=== PATIENT | male | born 1955 | race Caucasian/White ===

== ENCOUNTER → 2017-04-05 | Day surgery (SDC) | payer BC ==
[~2017-04-05] MED LIST: ACETAMINOPHEN325 MG PO; ASPIRIN81 M2 PO; DIOVAN; DIOVAN PO; DIOVAN80 M1 PO; HCTZ PO; HYDROCODON-ACE1 EAC7 PO; LISINOPRIL PO; LODINE PO; LOPRESSOR PO; MOBIC PO; MULTIVITAMINS1 EAC3 PO; NAPROSYN-EC500 M1 PO; OMEPRAZOLE40 M1 PO; STOOL SOFTENER50 MG PO; UNKNOWN B/P MED; VALSARTAN80 MG PO; VICODIN 5/500 T1 TAB PO
--- NOTE | ~2017-04-05 | OR ---
Unit #: [id number] #: [id number] Patient: OUSMANE WILKES [id number] [address] [place], [place] [address] [id number] O MR#: [id number] NAME: OUSMANE WILKES. ROOM: Date of Procedure: 04/05/2017 Admission Date: 04/05/2017 Surgeon: Boo Reeys M.D. : 1955 Attending Physician: Clyde Reyes Primary Care Physician: Shane Mixon M.D. SURGERY CENTER OPERATIVE NOTE PROCEDURE PERFORMED Lumbar epidural steroid injection under x-ray guided needle placement with provider administered conscious sedation. PREOPERATIVE DIAGNOSES 1. Acute lumbar radiculitis. 2. Spinal stenosis, lumbosacral spine. 3. Degenerative joint disease, lumbosacral spine. 4. Degenerative disk disease, lumbosacral spine. INDICATIONS FOR PROCEDURE The patient presents today with longstanding history of chronic recurrent lumbar radicular pain secondary to his underlying degenerative processes. He is generally fairly well managed medically with ongoing continuous conservative measures; however, he does on occasion experienced exacerbations, which breakthrough his ongoing continuous conservative measures and to date have only responded to epidural steroid injections. He is again experiencing just such an exacerbation, which is consistent with past as well as consistent with his diagnostic x-ray studies. His usual amount of relief has been 80% or greater for 8 to 10 weeks or greater. After discussing risks and benefits of proceeding today with a lumbar epidural steroid injection utilizing a dual needle access technique, the patient agreed this would be the appropriate course of action. DESCRIPTION OF PROCEDURE He was then taken to the operating room, where he was prepped and draped in a sterile manner. Standard monitors were applied. He was sedated with 2 mg of IV Versed initially and required an additional 2 mL of IV fentanyl throughout the duration of procedure. Lumbar epidural space was accessed at the L4-L5 and L2-L3 levels using loss of resistance technique and x-ray guidance. Total x-ray time for this dual needle placement was 11 seconds. There was good superior and inferior flow at both needle placement locations. Following successful needle placement confirmation, the patient received an injectate containing 4 mL of normal saline, and 40 mg of methylprednisolone at each site for a total injectate volume of 8 mL of normal saline, and 80 mg of methylprednisolone. He tolerated this procedure well. He was discharged home with followup instructions, which include an offer to return to this clinic as early as 07/12/2017 if we could be of further service to him. Dictated by... Unit #: [id number] #: [id number] Patient: OUSMANE WILKES Boo Reyes M.D. JRG/modl TD: 04/05/2017 12:17 JOB #: [id number] CC: Shane Mixon M.D. SURGERY CENTER OPERATIVE NOTE Page 1 of 1 X Clyde Reyes MD X PROCEDURE OPERATIVE NOTE
== END | disposition home or self-care (01) ==
LOC: CCSC 09:34
DX: G89.29 Other chronic pain (principal); M51.17 Intervertebral disc disorders with radiculopathy, lumbosacral region; M47.27 Other spondylosis with radiculopathy, lumbosacral region; M48.07 Spinal stenosis, lumbosacral region; F17.210 Nicotine dependence, cigarettes, uncomplicated; Z87.442 Personal history of urinary calculi; Z87.19 Personal history of other diseases of the digestive system; Z90.49 Acquired absence of other specified parts of digestive tract; Z88.8 Allergy status to other drugs, medicaments and biological substances
CPT/HCPCS: J1040; J2250; J3010

== ENCOUNTER → 2017-05-17 | Outpatient (CLI) | payer BC ==
--- NOTE | ~2017-05-17 | MR180 ---
[facility] A Service of [facility] RADIOLOGY TEXT RESULTS PATIENT: OUSMANE WILKES LOCATION: [facility] : 53 UNIT #: [id number] AGE: [address]: Shane Mixon MD SEX: M ORDER DR: [id number] [facility] [address] [facility] [place], [place] [address] [id number] O MR#: [id number] Acc #: [id number] NAME: OUSMANE WILKES. : 1955 SEX: M STUDY DATE/TIME: 05/17/2017 6:29 UNIT: [facility] ROOM: STUDY DESCRIPTION: MR Tibia and Fibula WWo Cont R Attending Physician: Shane Mixon M.D. Referring Physician: Shane Mixon M.D. Ordering Physician: Shane Mixon M.D. Primary Care Physician: Shane Mixon M.D. MRI CENTER REPORT This report is preliminary unless electronic signature is present. EXAM MRI right lower leg without and with IV contrast 05/17/2017 COMPARISON Tibia-fibula radiographs 07/19/2016 and right knee radiographs 03/16/2015. Office notes 04/07/2017 [facility]. HISTORY Order states mass of right leg, pain in right fibula. History sheet states no trauma. No history of cancer and no related surgery of the right leg. While sitting at home July 2016 had a sharp pain in the right leg at the head of the fibula and felt a knot. Since July 2016, developed some swelling below the knot. Markers placed at the knot/swollen area. FINDINGS Corresponding to the region of the markers, is a longitudinal superiorly lobulated nonenhancing cystic lesion measuring 10 cm craniocaudal x 1.2 cm AP x 1.3 cm transverse. The lobulated cranial portion of the lesion appears to have a subtle tail communication to the anterolateral aspect of the arthropathic proximal tibiofibular joint. Proximal tibiofibular joint demonstrates anterior osteophyte formation, joint space narrowing, and fibular side subarticular edema. The lesion tracks inferiorly along the anterior compartment superficial muscle fascia. There is moderate generalized anterior lateral lower leg subcutaneous edema. There is no evidence of enhancing tumor. There is reactive enhancement surrounding the lesion (correlate for any clinical evidence of infection). Appearance is most compatible with synovial cyst or ganglion emanating from the arthritic proximal tibiofibular joint. STS. [facility] A Service of [facility] RADIOLOGY TEXT RESULTS PATIENT: OUSMANE WILKES LOCATION: [facility] : 54 UNIT #: [id number] AGE: [address]: Shane Mixon MD SEX: M ORDER DR: There is mild atrophy and edema of the anterior compartment musculature. Findings are concerning for deep peroneal nerve - related subacute stage denervation. Findings are concerning for deep peroneal nerve compression proximally. Small focus of defined muscle atrophy of the right soleus muscle is likely an incidental finding. Probably reflects a small intraarticular muscular lipoma. There is evidence of arthritic change of the knee predominating in the patellofemoral and medial compartments, not optimally characterized on this tibia-fibula exam with soft tissue tumor protocol. IMPRESSION 1. 10.0 x 1.3 cm synovial cyst/ganglion appears to emanate from a tail connection to the arthropathic proximal tibiofibular joint. There is caudal cyst extension along the lower leg anterior compartment superficial muscle fascia. There is moderate proximal tibiofibular joint arthrosis. Joint capsular deficiency or degeneration is likely the cause of the lesion. 2. Mild edema and mild atrophy within the anterior compartment musculature suggestive of subacute phase denervation. This is likely from deep peroneal nerve compression proximally. 3. No evidence of malignancy. 4. Arthritic changes of the medial and patellofemoral compartments of the right knee are not optimally characterized on this exam. Dictated by... Ninoska Hensley M.D. THIS IS AN ELECTRONICALLY VERIFIED REPORT Ninoska Hensley M.D. at 05/18/2017 2:12 PM SEN/juan manuel TD: 05/18/2017 13:08 JOB #: [id number] MRI CENTER REPORT Page 1 of 1 COPY
[2017-05-17 07:21] LABS: POC - CREATININE 0.93 mg/dL (0.64-1.27); POC - GFR >60.0 mL/min (>60)
== END | disposition home or self-care (01) ==
LOC: CMRI 05:53
PROVIDERS: Family Medicine
DX: M79.661 Pain in right lower leg (principal); R22.41 Localized swelling, mass and lump, right lower limb; M25.871 Other specified joint disorders, right ankle and foot; M19.071 Primary osteoarthritis, right ankle and foot; M62.571 Muscle wasting and atrophy, not elsewhere classified, right ankle and foot; M17.11 Unilateral primary osteoarthritis, right knee
CPT/HCPCS: 73720; 82565; A9577

== ENCOUNTER → 2017-05-29 | Day surgery (SDC) | payer BC ==
--- NOTE | ~2017-05-29 | OR ---
Unit #: [id number] #: [id number] Patient: OUSMANE WILKES [id number] [address] [address] [id number] O MR#: [id number] NAME: OUSMANE WILKES. ROOM: Date of Procedure: 05/29/2017 Admission Date: 05/29/2017 Surgeon: Rodo Esparza M.D. : 1955 Attending Physician: Rodo Esparza M.D. Primary Care Physician: Shnae Mixon M.D. OPERATIVE REPORT PRIMARY CARE PHYSICIAN Shane Mixon M.D. PREOPERATIVE DIAGNOSES Personal history of colon polyps. The patient has come for surveillance colonoscopy. PROCEDURES PERFORMED 1. Colonoscopy and biopsy. 2. Colonoscopy with polypectomy. POSTOPERATIVE DIAGNOSES 1. The patient had 4 polyps, one in the cecum adjacent to appendiceal orifice, two at the hepatic flexure, and one in the ascending colon. All the polyps were removed using snare polypectomy except for the ascending colon polyp, which was diminutive and was removed using cold biopsy forceps. 2. Small internal hemorrhoids. 3. Rest of the examination up to cecum was normal. The quality of the prep was excellent. RECOMMENDATIONS Follow up the results of polyp histology and repeat colonoscopy in 5 years. SEDATION USED MAC. DESCRIPTION OF PROCEDURE Following detailed explanations of potential risks and complications of a colonoscopy, namely perforation, bleeding, and complications related to sedation, the patient was brought to GI lab and laid in the left lateral decubitus position. A digital rectal examination was performed, which was normal. Lubricated tip of the Olympus video colonoscope was inserted through the anus and advanced under direct vision. The scope was advanced and passed up to sigmoid into descending colon. No diverticula were seen in this area. The scope tip was then navigated all the way up to cecum with visualization of the ileocecal valve and the appendiceal orifice. Preparation was excellent with good visualization and photodocumentation was obtained. Successive segments of the colonic mucosa were examined upon withdrawal. The patient was noted to have single sessile polyp adjacent to appendiceal orifice in the cecum. This was removed using snare polypectomy. It was about 8 mm in size. There was a diminutive Unit #: [id number] #: [id number] Patient: OUSMANE WILKES polyp in the mid ascending colon, which was removed using cold biopsy forceps. Two additional polyps were noted at the hepatic flexure. These were 6 mm and a 1 cm each, both of these were removed using snare polypectomy. They were retrieved and sent for histology. No additional polyps noted. The patient did not have any diverticulosis, but did have small internal hemorrhoids at anal verge. The scope was then withdrawn and the patient returned to the recovery area. He tolerated the procedure without any postprocedure complications. Dictated by... Penny Escobar/balwinder TD: 05/29/2017 13:25 JOB #: [id number] OPERATIVE REPORT Page 1 of 1 X Rodo Esparza MD X PROCEDURE OPERATIVE NOTE
== END | disposition home or self-care (01) ==
LOC: COPS 08:00
DX: Z12.11 Encounter for screening for malignant neoplasm of colon (principal); D12.0 Benign neoplasm of cecum; D12.2 Benign neoplasm of ascending colon; K63.5 Polyp of colon; K64.8 Other hemorrhoids; I10 Essential (primary) hypertension; F17.210 Nicotine dependence, cigarettes, uncomplicated; Z86.010 Personal history of colon polyps; Z87.442 Personal history of urinary calculi; Z88.8 Allergy status to other drugs, medicaments and biological substances; Z91.013 Allergy to seafood; Z79.82 Long term (current) use of aspirin; Z79.899 Other long term (current) drug therapy; Z79.891 Long term (current) use of opiate analgesic; Z90.49 Acquired absence of other specified parts of digestive tract; Z98.1 Arthrodesis status; Z98.41 Cataract extraction status, right eye; Z98.890 Other specified postprocedural states
CPT/HCPCS: 88305; J2250

== ENCOUNTER → 2017-07-12 | Day surgery (SDC) | payer BC ==
--- NOTE | ~2017-07-12 | OR ---
Unit #: [id number] #: [id number] Patient: OUSMANE WILKES [id number] [address] [place], [place] [address] [id number] O MR#: [id number] NAME: OUSMANE WILKES. ROOM: Date of Procedure: 07/12/2017 Admission Date: 07/12/2017 Surgeon: Boo Reyes M.D. : 1955 Attending Physician: Clyde Reyes Referring Physician: Clyde Reyes Primary Care Physician: Shane Mixon M.D. SURGERY CENTER OPERATIVE NOTE PROCEDURE PERFORMED Lumbar epidural steroid injection under x-ray guided needle placement with provider administered conscious sedation. PREOPERATIVE DIAGNOSES 1. Acute lumbar radiculitis. 2. Spinal stenosis, lumbosacral spine. 3. Herniated disk, L2-L3. 4. Degenerative joint disease, lumbosacral spine. 5. Degenerative disk disease, lumbosacral spine. INDICATIONS FOR PROCEDURE The patient presents today with longstanding history of chronic lumbar radicular pain secondary to his underlying degenerative disease. It is most notably affected with an L2-L3 lumbar radiculitis left greater than right. This is generally fairly well managed medically with ongoing continuous conservative medical management as well as self-directed physical activity. The patient does occasionally experience exacerbations, which breakthrough his ongoing medical management and to date have only responded to epidural steroid injections. His usual amount of relief is 80% to 100% for 6 to 8 weeks. He presents today having just such an exacerbation with a 4 to 6 week history of crescendo pattern advancement of his pain eventually breaking through his ongoing continuous management to the point that is now negatively impacting his activities of daily living. After discussing risks and benefits of proceeding today with lumbar approach epidural steroid injection and return date of 10/18/2017, the patient agreed this would be the appropriate course of action. DESCRIPTION OF PROCEDURE He was then taken to the operating room, where he was prepped and draped in a sterile manner. Standard monitors were applied. He was sedated with 2 mg of IV Versed initially and required an additional 2 mg of IV Versed as well as an additional 1 mL of IV fentanyl throughout the duration of procedure. Lumbar epidural space accessed at L2-L3 level using loss of resistance technique and x-ray guidance. Needle placement was confirmed with injection of 2 mL of Omnipaque. There was good superior and inferior flow at this L2-L3 placed needle. Following successful needle placement confirmation which required an x-ray time of 6 seconds, the patient received an injectate containing 6 mL normal saline and 80 mg of methylprednisolone. He tolerated this procedure well. He was discharged home with followup instructions with return dates as described above. Unit #: [id number] #: [id number] Patient: LELOOUSMANE Rivera Dictated by... Penny Joseph/balwinder TD: 07/12/2017 18:11 JOB #: [id number] CC: . SURGERY CENTER OPERATIVE NOTE Page 1 of 1 X Clyde Reyes MD X PROCEDURE OPERATIVE NOTE
== END | disposition home or self-care (01) ==
LOC: CCSC 08:43
DX: G89.29 Other chronic pain (principal); M51.17 Intervertebral disc disorders with radiculopathy, lumbosacral region; M51.16 Intervertebral disc disorders with radiculopathy, lumbar region; M47.27 Other spondylosis with radiculopathy, lumbosacral region; M48.07 Spinal stenosis, lumbosacral region; F17.210 Nicotine dependence, cigarettes, uncomplicated; Z87.442 Personal history of urinary calculi; Z88.8 Allergy status to other drugs, medicaments and biological substances; Z91.013 Allergy to seafood; Z79.899 Other long term (current) drug therapy; Z79.82 Long term (current) use of aspirin; Z98.1 Arthrodesis status; Z90.49 Acquired absence of other specified parts of digestive tract; Z98.41 Cataract extraction status, right eye; Z98.890 Other specified postprocedural states
CPT/HCPCS: J1040; J2250; J3010